=== PATIENT | female | born 1945 ===

== ENCOUNTER → 2016-04-13 | Outpatient (CLI) | payer OTHER ==
[2016-04-13 14:08] LABS: THYROID STIMULATING HORMONE 0.482 uIu/ml (0.300-4.500)
== END | disposition home or self-care (01) ==
LOC: C.LABMFLN 07:51
PROVIDERS: ATTEND Family Medicine
DX: E03.9 Hypothyroidism, unspecified (principal)

== ENCOUNTER → 2017-03-15 | Outpatient (CLI) | payer OTHER, MEDICARE ==
[2017-03-15 13:45] LABS: ALT/SGPT 33 U/L (12-78); AST/SGOT 27 U/L (15-37); BLOOD UREA NITROGEN 23 mg/dl (7-18); BUN/CREATININE RATIO 28.2 (10-20); CALCIUM 9.3 mg/dl (8.5-10.1); CARBON DIOXIDE 26 mmol/L (21-32); CHLORIDE 108 mmol/L (98-107); CHOLESTEROL 231 mg/dl (0-200); CREATININE 0.82 mg/dl (0.60-1.20); GLUCOSE 116 mg/dl (70-99); POTASSIUM 3.7 mmol/L (3.5-5.1); SODIUM 140 mmol/L (136-145)
[2017-03-15 13:54] LABS: ALB/GLOB RATIO 1.3 (0.9-2); ALKALINE PHOSPHATASE 105 U/L (45-117); CHOLESTEROL/HDL RATIO 5.6; HDL CHOLESTEROL 41 mg/dl; LDL CHOLESTEROL CALCULATED 163 mg/dl; THYROID STIMULATING HORMONE 0.126 uIu/ml (0.300-4.500); TRIGLYCERIDES 136 mg/dl (0-150); VERY LOW DENSITY LIPOPROT CALC 27 mg/dl
== END | disposition home or self-care (01) ==
LOC: C.LABMFLN 07:37
PROVIDERS: ATTEND Family Medicine
DX: E03.9 Hypothyroidism, unspecified (principal); E78.5 Hyperlipidemia, unspecified